=== PATIENT | male | born 1950 | race Caucasian/White ===

== ENCOUNTER 2017-02-17 18:46 | Emergency (ER) | payer MEDICARE, OTHER ==
[2017-02-17 18:52] VITALS: TEMP 98.4
--- NOTE | 2017-02-17 20:40 | EDPHY ---
H & P Stated Complaint: ? skin infections/fingers Time Seen by Provider: 02/17/17 20:28 - Personal History Current Tetanus/Diphtheria Vaccine: Yes - Medical/Surgical History Hx Asthma: No Hx Chronic Respiratory Disease: No Hx Diabetes: No Hx Cardiac Disease: No Hx Renal Disease: No Hx Cirrhosis: No Hx Alcoholism: No Hx HIV/AIDS: No Hx Splenectomy or Spleen Trauma: No Other PMH: denies - Social History Smoking Status: Current every day smoker Constitutional: Initial Vital Signs Temperature (C) 36.9 C 02/17/17 18:50 Heart Rate 105 H 02/17/17 18:50 Respiratory Rate 20 02/17/17 18:50 Blood Pressure 117/92 H 02/17/17 18:50 O2 Sat (%) 96 02/17/17 18:50 O2 Delivery Mode Room Air Allergies/Adverse Reactions: No Known Allergies Allergy (Verified 02/17/17 18:49) Home Medications: Medication Instructions Recorded No Medications [NO HOME 1 ea [facility] – [place], [place] 12/02/10 MEDICATIONS] Medical Decision Making ED Course/Re-evaluation: CHIEF COMPLAINT: Finger infection HISTORY OF PRESENT ILLNESS: 66-year-old gentleman who has a finger infection on the left long finger. It has been effective for several days. [facility] seen [facility] who recommended they come here to the emergency department to have it treated. 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 There is no other fingers that are bothering him outside of his usual arthritis. REVIEW OF SYSTEMS: A 10 point review of systems was performed and is negative with the exception of the elements mentioned in the history of present illness. PHYSICAL EXAM: HR, BP, O2 Sat, RR. Temp noted General Appearance: Alert, well hydrated, appropriate, and non-toxic appearing. Head: Atraumatic without scalp tenderness or obvious injury Eyes: Pupils equal, round, reactive to light and accommodation, EOMI, no trauma , no injection. Ears: Clear bilaterally, no perforation, normal landmarks Nose: Atraumatic, no rhinorrhea, clear. Throat: There is no erythema or exudates, no lesions, normal tonsils, mucus membranes moist. Neck: Supple, 2+ carotid upstroke, nontender, no lymphadenopathy. Respiratory: No retractions, no distress, no wheezes, and no accessory muscle use. Lungs are clear to auscultation bilaterally. Cardiovascular: Regular rate and rhythm, no murmurs, rubs, or gallops. Bilateral carotid, radial, dorsalis pedis, and posterior tibial pulses intact. Good capillary refill all extremities. Gastrointestinal: Abdomen is soft, nontender, non-distended, no masses, no rebound, no guarding, no peritoneal signs. Musculoskeletal: Normal active ROM of all extremities, atraumatic. Neurological: Alert, appropriate, and interactive. The patient has normal DTRs and non-focal cranial nerves, motor, sensory, and cerebellar exam. Skin: Obvious paronychia of the left long finger. No evidence of a felon. No rashes, good turgor, no nodules on palpation. Past medical history: Patient denies Past surgical history: Patient denies Family history: Noncontributory Social history: Single, uses cigarettes, denies drug or alcohol abuse, employed DIFFERENTIAL DIAGNOSIS: Includes but is not limited to: Trauma, infection, subungual hematoma, arthritis MEDICAL DECISION MAKING: This patient has a paronychia of the left long finger. Mary Ann Burt will Jace the paronychia and I will start this patient on Bactrim. [facility] - Departure Disposition: Home, Routine, Self-Care Clinical Impression: Paronychia Condition: Good Instructions: Paronychia (ED) Referrals: [facility] [Other] - As per Instructions
[2017-02-17] MEDS ORDERED: SULFAMET/TMP DS PREPACK#2 BTL TAKEHOME ONE (20:41)
[2017-02-17] MEDS ORDERED: SULFAMETHOX/TMP 800/160 MG 1 TAB PO ONE (20:41)
--- NOTE | 2017-02-17 20:50 | EDPHY ---
ED Progress Note Narrative: Procedure: Abscess drainage. The patient's abscess was located on the left index finger distal aspect. I obtained verbal consent from the patient to drain the abscess who was informed about the possibility of bleeding and pain. A digital block was performed with in usual fashion to achieve anesthesia. The abscess was incised using a stab incision with a 27 gauge needle at the proximal nail fold. 6 ML amount of purulent drainage was expressed. I irrigated the wound and apply clean sterile dressing. The patient tolerated the procedure well. The procedure was performed by myself.
[2017-02-17 21:04] VITALS: BP 116/90; PULSE 89; RESP 18; O2SAT 94
== END 2017-02-17 21:10 | disposition home or self-care (01) ==
PROC: 0H9GXZZ Drainage of Left Hand Skin, External Approach (ICD-10-PCS; principal; 2017-02-17)
DX: L03.012 Cellulitis of left finger (principal); F17.200 Nicotine dependence, unspecified, uncomplicated

== ENCOUNTER 2017-03-16 11:50 | Emergency (ER) | payer OTHER ==
[2017-03-16 12:42] LABS: PLATELET COUNT 302 10^3/uL (150-400)
[2017-03-16] MEDS ORDERED: HYDROmorphONE/DILAUDID 1 MG/ML INJ IVP ONE (13:01)
[2017-03-16] MEDS ORDERED: NS 1,000 ML IV ONE (13:01)
--- NOTE | 2017-03-16 13:07 | EDPHY ---
H & P Time Seen by Provider: 03/16/17 12:53 HPI/ROS: HPI Left hip and flank pain. 66-year-old male on foot. This patient says that he has had left hip and flank pain for the last month. His primary care physician prescribed him ibuprofen about 2 weeks ago. He took this but stated that he then started having gross hematuria. This has resolved but over the last few days his left flank pain which radiates down into his left hip has worsened. He reports having a history of a kidney stone he was told about years ago. No fever. Current no hematuria. No vomiting. No history of trauma. ROS: Constitutional: No fever, no chills. No weakness. Eyes: No discharge. No changes in vision. ENT: No sore throat. No nasal congestion or rhinorrhea. Respiratory: No cough. No shortness of breath. Cardiac: No chest pain, no palpitations. Gastrointestinal: No abdominal pain, no vomiting, no diarrhea. Genitourinary: As above. No dysuria or increased frequency with urination. Musculoskeletal: As above. No neck pain. No myalgias or arthralgias. Skin: No rashes. Neurological: No headache. No focal weakness or altered sensation. Past medical history: As above. Otherwise he denies any past medical history. Primary care is through [facility]. Social history: Here by himself. 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 Denies drugs and alcohol. Physical Exam: General Appearance: Alert, he does not appear in distress. Somewhat disheveled. This patient is responding to questions appropriately and in full sentences. This patient appears well-hydrated and well-nourished. Eyes: Pupils equal and round no pallor or injection. No lid edema, erythema or injection. Respiratory: There are no retractions, lungs are clear to auscultation with good air movement bilaterally. Cardiovascular: Regular rate and rhythm. No murmur. Gastrointestinal: Abdomen is soft and nontender, no masses, bowel sounds normal. No focal tenderness at McBurney's point. No Carvalho sign. Neurological: Motor sensory function is grossly intact. Cranial nerves are normal. Gait is normal. Skin: Warm and dry, no rashes. Musculoskeletal: Neck is supple and nontender. Vague and mild left-sided CVA tenderness on palpation. The left hip ranges without any pain or impingement. No pain on axial loading of the left hip. Inspection of his back and flanks, no rash, soft tissue swelling, erythema, warmth or evidence of acute traumatic injury. Extremities are symmetrical. All joints range without pain or impingement. Psychiatric: No agitation. No depression. Database: EKG: Imaging: CT scan of abdomen and pelvis without contrast: Large, 4 cm left renal calyx stone. Gallstones noted. No significant change from prior study in 2008. Results were discussed with staff radiologist Dr. Gnuner Nicolas. Please see report by Dr. Gunner Nicolas for further details. Procedures: Emergency department course: IV placed. He was placed on a environmental monitoring technician. Vital signs reviewed and are normal. He is afebrile. He was started on IV normal saline with 1 L to be given over the next hour. He was initially given 0.5 mg of IV hydromorphone. He will be sent for CT imaging to evaluate for ureterolithiasis. 3:05 p.m., laboratory work and urinalysis reviewed. Patient re-evaluated. He appears comfortable at this time. I discussed the results of his emergency department workup and CT scan. Plan will be to have him follow up with a urologist. I explained this could be done through his primary care physician at [facility] and I will also provide him with a referral directly. He is in agreement with this plan. He feels comfortable going home. Return to emergency department precautions were discussed with him. All of his questions were answered. He was discharged in good condition. Differential Diagnosis: The differential diagnosis on this patient includes but is not limited to kidney stone, osteoarthritis of left hip, traumatic musculoskeletal injury. Pyelonephritis, appendicitis, volvulus, fracture/subluxation/dislocation of the left hip unlikely. This represents a partial list of diagnoses considered. These considerations are based on history, physical exam, past history, reassessment and diagnostic testing. Smoking Status: Current every day smoker Constitutional: Initial Vital Signs Temperature (C) 36.4 C 03/16/17 11:54 Heart Rate 90 03/16/17 11:54 Respiratory Rate 18 03/16/17 11:54 Blood Pressure 117/87 H 03/16/17 11:54 O2 Sat (%) 96 03/16/17 11:54 O2 Delivery Mode Room Air Allergies/Adverse Reactions: No Known Allergies Allergy (Verified 03/16/17 11:53) Home Medications: Medication Instructions Recorded NK [No Known Home Meds] 03/16/17 Medical Decision Making - Diagnostics Imaging Results: Imaging Impressions Abdomen/Pelvis CT 03/16/17 13:02 Impression: 1. Cholelithiasis with possible gallbladder wall thickening, suspicious for cholecystitis, similar to the comparison from 2008, suboptimally assessed due to motion. 2. Slight increase in size of a 4-cm left renal pelvis stone with marked pelviectasis and mild caliectasis. 3. 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 4. Punctate nonobstructing right nephrolithiasis. 5. Additional findings as above. Findings discussed with Dr. Alfredo Clayton on March 16, 2017 at 1405 hours. Attention: This CT examination is specifically designed to evaluate patients who are clinically suspected of having acute obstructive uropathy. This examination does not use radiographic contrast, and as such, provides only a limited evaluation of the abdomen, pelvis and retroperitoneum. If there is further clinical suspicion for pathological conditions other than obstructive uropathy, a complete CT evaluation of the abdomen and pelvis utilizing intravenous and oral contrast should be considered. - Data Points Laboratory Results: Laboratory Results 03/16/17 12:20 03/16/17 12:20 03/16/17 03/16/17 03/16/17 14:30 12:20 12:20 WBC 6.85 10^3/uL 10^3/uL (3.80-9.50) RBC 4.60 10^6/uL 10^6/uL (4.40-6.38) Hgb 14.5 g/dL g/dL (13.7-17.5) Hct 42.0 % % (40.0-51.0) MCV 91.3 fL fL (81.5-99.8) MCH 31.5 pg pg (27.9-34.1) MCHC 34.5 g/dL g/dL (32.4-36.7) RDW 15.0 % % (11.5-15.2) Plt Count 302 10^3/uL 10^3/uL (150-400) MPV 9.3 fL fL (8.7-11.7) Neut % (Auto) 44.4 % % (39.3-74.2) Lymph % (Auto) 28.9 % % (15.0-45.0) [place] % (Auto) 9.8 % % (4.5-13.0) Eos % (Auto) 14.7 % H % (0.6-7.6) Baso % (Auto) 1.8 % H % (0.3-1.7) Nucleat RBC Rel Count 0.0 % % (0.0-0.2) Absolute Neuts (auto) 3.04 10^3/uL 10^3/uL (1.70-6.50) Absolute Lymphs (auto) 1.98 10^3/uL 10^3/uL (1.00-3.00) Absolute Monos (auto) 0.67 10^3/uL 10^3/uL (0.30-0.80) Absolute Eos (auto) 1.01 10^3/uL H 10^3/uL (0.03-0.40) Absolute Basos (auto) 0.12 10^3/uL H 10^3/uL (0.02-0.10) Absolute Nucleated RBC 0.00 10^3/uL 10^3/uL (0-0.01) Immature Gran % 0.4 % % (0.0-1.1) Immature Gran # 0.03 10^3/uL 10^3/uL (0.00-0.10) Sodium 140 mEq/L mEq/L (134-144) Potassium 4.0 mEq/L mEq/L (3.5-5.2) Chloride 105 mEq/L mEq/L (97-110) Carbon Dioxide 25 mEq/l mEq/l (22-31) Anion Gap 10 mEq/L mEq/L (8-16) BUN 16 mg/dL mg/dL (7-23) Creatinine 0.6 mg/dL L mg/dL (0.7-1.3) Estimated GFR > 60 Glucose 98 mg/dL mg/dL (70-100) Calcium 8.9 mg/dL mg/dL (8.5-10.4) Urine Color YELLOW Urine Appearance HAZY Urine pH 5.0 (5.0-7.5) Ur Specific [place] 1.012 (1.002-1.030) Urine Protein NEGATIVE (NEGATIVE) Urine Ketones NEGATIVE (NEGATIVE) Urine Blood 2+ H (NEGATIVE) Urine Nitrate NEGATIVE (NEGATIVE) Urine Bilirubin NEGATIVE (NEGATIVE) Urine Urobilinogen NEGATIVE EU EU (0.2-1.0) Ur Leukocyte Esterase NEGATIVE (NEGATIVE) Urine RBC 3-5 /hpf H /hpf (0-3) Urine WBC 1-3 /hpf /hpf (0-3) Ur Epithelial Cells TRACE /lpf /lpf (NONE-1+) Calcium Oxalate Crystal PRESENT /hpf /hpf (NONE-1+) Urine Glucose NEGATIVE (NEGATIVE) Medications Given: Discontinued Medications Hydromorphone HCl (Dilaudid) 0.5 mg IVP EDNOW ONE Stop: 03/16/17 13:02 Last Admin: 03/16/17 13:10 Dose: 0.5 mg Sodium Chloride (Ns) 1,000 mls @ 0 mls/hr IV EDNOW ONE; Wide Open PRN Reason: Protocol Stop: 03/16/17 13:02 Last Admin: 03/16/17 13:11 Dose: 1,000 mls Departure - Departure Disposition: Home, Routine, Self-Care Clinical Impression: Left flank pain, Kidney stone on left side Condition: Good Instructions: Kidney Stones (ED), Flank Pain (ED) Additional Instructions: Read and follow provided instructions. Follow-up with your primary care physician at [facility] in 1-2 days for re -evaluation. You can be referred to a urologist by primary care physician at [facility]. I will also provide you with a referral to a urologist. This stone in your left kidneys to be broken up and removed. [place]/Percocet dosin-2 every 4-6 hours for [address] not drive on this medication. Return to the emergency department for worsening pain, fever, blood in her urine , vomiting or other serious concerns. Referrals: [facility] [Other] - As per Instructions Adama Brink MD [Medical Doctor] - As per Instructions
--- NOTE | 2017-03-16 13:07 | EDPHY ---
H & P Time Seen by Provider: 03/16/17 12:53 HPI/ROS: HPI Left hip and flank pain. 66-year-old male on foot. This patient says that he has had left hip and flank pain for the last month. His primary care physician prescribed him ibuprofen about 2 weeks ago. He took this but stated that he then started having gross hematuria. This has resolved but over the last few days his left flank pain which radiates down into his left hip has worsened. He reports having a history of a kidney stone he was told about years ago. No fever. Current no hematuria. No vomiting. No history of trauma. ROS: Constitutional: No fever, no chills. No weakness. Eyes: No discharge. No changes in vision. ENT: No sore throat. No nasal congestion or rhinorrhea. Respiratory: No cough. No shortness of breath. Cardiac: No chest pain, no palpitations. Gastrointestinal: No abdominal pain, no vomiting, no diarrhea. Genitourinary: As above. No dysuria or increased frequency with urination. Musculoskeletal: As above. No neck pain. No myalgias or arthralgias. Skin: No rashes. Neurological: No headache. No focal weakness or altered sensation. Past medical history: As above. Otherwise he denies any past medical history. Primary care is through [facility]. Social history: Here by himself. 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 Denies drugs and alcohol. Physical Exam: General Appearance: Alert, he does not appear in distress. Somewhat disheveled. This patient is responding to questions appropriately and in full sentences. This patient appears well-hydrated and well-nourished. Eyes: Pupils equal and round no pallor or injection. No lid edema, erythema or injection. Respiratory: There are no retractions, lungs are clear to auscultation with good air movement bilaterally. Cardiovascular: Regular rate and rhythm. No murmur. Gastrointestinal: Abdomen is soft and nontender, no masses, bowel sounds normal. No focal tenderness at McBurney's point. No Carvalho sign. Neurological: Motor sensory function is grossly intact. Cranial nerves are normal. Gait is normal. Skin: Warm and dry, no rashes. Musculoskeletal: Neck is supple and nontender. Vague and mild left-sided CVA tenderness on palpation. The left hip ranges without any pain or impingement. No pain on axial loading of the left hip. Inspection of his back and flanks, no rash, soft tissue swelling, erythema, warmth or evidence of acute traumatic injury. Extremities are symmetrical. All joints range without pain or impingement. Psychiatric: No agitation. No depression. Database: EKG: Imaging: CT scan of abdomen and pelvis without contrast: Large, 4 cm left renal calyx stone. Gallstones noted. No significant change from prior study in 2008. Results were discussed with staff radiologist Dr. Gunner Nicolas. Please see report by Dr. Gunner Nicolas for further details. Procedures: Emergency department course: IV placed. He was placed on a secured entrance monitor. Vital signs reviewed and are normal. He is afebrile. He was started on IV normal saline with 1 L to be given over the next hour. He was initially given 0.5 mg of IV hydromorphone. He will be sent for CT imaging to evaluate for ureterolithiasis. 3:05 p.m., laboratory work and urinalysis reviewed. Patient re-evaluated. He appears comfortable at this time. I discussed the results of his emergency department workup and CT scan. Plan will be to have him follow up with a urologist. I explained this could be done through his primary care physician at [facility] and I will also provide him with a referral directly. He is in agreement with this plan. He feels comfortable going home. Return to emergency department precautions were discussed with him. All of his questions were answered. He was discharged in good condition. Differential Diagnosis: The differential diagnosis on this patient includes but is not limited to kidney stone, osteoarthritis of left hip, traumatic musculoskeletal injury. Pyelonephritis, appendicitis, volvulus, fracture/subluxation/dislocation of the left hip unlikely. This represents a partial list of diagnoses considered. These considerations are based on history, physical exam, past history, reassessment and diagnostic testing. Smoking Status: Current every day smoker Constitutional: Initial Vital Signs Temperature (C) 36.4 C 03/16/17 11:54 Heart Rate 90 03/16/17 11:54 Respiratory Rate 18 03/16/17 11:54 Blood Pressure 117/87 H 03/16/17 11:54 O2 Sat (%) 96 03/16/17 11:54 O2 Delivery Mode Room Air Allergies/Adverse Reactions: No Known Allergies Allergy (Verified 03/16/17 11:53) Home Medications: Medication Instructions Recorded NK [No Known Home Meds] 03/16/17 Medical Decision Making - Diagnostics Imaging Results: Imaging Impressions Abdomen/Pelvis CT 03/16/17 13:02 Impression: 1. Cholelithiasis with possible gallbladder wall thickening, suspicious for cholecystitis, similar to the comparison from 2008, suboptimally assessed due to motion. 2. Slight increase in size of a 4-cm left renal pelvis stone with marked pelviectasis and mild caliectasis. 3. 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 4. Punctate nonobstructing right nephrolithiasis. 5. Additional findings as above. Findings discussed with Dr. Alfredo Clayton on March 16, 2017 at 1405 hours. Attention: This CT examination is specifically designed to evaluate patients who are clinically suspected of having acute obstructive uropathy. This examination does not use radiographic contrast, and as such, provides only a limited evaluation of the abdomen, pelvis and retroperitoneum. If there is further clinical suspicion for pathological conditions other than obstructive uropathy, a complete CT evaluation of the abdomen and pelvis utilizing intravenous and oral contrast should be considered. - Data Points Laboratory Results: Laboratory Results 03/16/17 12:20 03/16/17 12:20 03/16/17 03/16/17 03/16/17 14:30 12:20 12:20 WBC 6.85 10^3/uL 10^3/uL (3.80-9.50) RBC 4.60 10^6/uL 10^6/uL (4.40-6.38) Hgb 14.5 g/dL g/dL (13.7-17.5) Hct 42.0 % % (40.0-51.0) MCV 91.3 fL fL (81.5-99.8) MCH 31.5 pg pg (27.9-34.1) MCHC 34.5 g/dL g/dL (32.4-36.7) RDW 15.0 % % (11.5-15.2) Plt Count 302 10^3/uL 10^3/uL (150-400) MPV 9.3 fL fL (8.7-11.7) Neut % (Auto) 44.4 % % (39.3-74.2) Lymph % (Auto) 28.9 % % (15.0-45.0) [place] % (Auto) 9.8 % % (4.5-13.0) Eos % (Auto) 14.7 % H % (0.6-7.6) Baso % (Auto) 1.8 % H % (0.3-1.7) Nucleat RBC Rel Count 0.0 % % (0.0-0.2) Absolute Neuts (auto) 3.04 10^3/uL 10^3/uL (1.70-6.50) Absolute Lymphs (auto) 1.98 10^3/uL 10^3/uL (1.00-3.00) Absolute Monos (auto) 0.67 10^3/uL 10^3/uL (0.30-0.80) Absolute Eos (auto) 1.01 10^3/uL H 10^3/uL (0.03-0.40) Absolute Basos (auto) 0.12 10^3/uL H 10^3/uL (0.02-0.10) Absolute Nucleated RBC 0.00 10^3/uL 10^3/uL (0-0.01) Immature Gran % 0.4 % % (0.0-1.1) Immature Gran # 0.03 10^3/uL 10^3/uL (0.00-0.10) Sodium 140 mEq/L mEq/L (134-144) Potassium 4.0 mEq/L mEq/L (3.5-5.2) Chloride 105 mEq/L mEq/L (97-110) Carbon Dioxide 25 mEq/l mEq/l (22-31) Anion Gap 10 mEq/L mEq/L (8-16) BUN 16 mg/dL mg/dL (7-23) Creatinine 0.6 mg/dL L mg/dL (0.7-1.3) Estimated GFR > 60 Glucose 98 mg/dL mg/dL (70-100) Calcium 8.9 mg/dL mg/dL (8.5-10.4) Urine Color YELLOW Urine Appearance HAZY Urine pH 5.0 (5.0-7.5) Ur Specific [place] 1.012 (1.002-1.030) Urine Protein NEGATIVE (NEGATIVE) Urine Ketones NEGATIVE (NEGATIVE) Urine Blood 2+ H (NEGATIVE) Urine Nitrate NEGATIVE (NEGATIVE) Urine Bilirubin NEGATIVE (NEGATIVE) Urine Urobilinogen NEGATIVE EU EU (0.2-1.0) Ur Leukocyte Esterase NEGATIVE (NEGATIVE) Urine RBC 3-5 /hpf H /hpf (0-3) Urine WBC 1-3 /hpf /hpf (0-3) Ur Epithelial Cells TRACE /lpf /lpf (NONE-1+) Calcium Oxalate Crystal PRESENT /hpf /hpf (NONE-1+) Urine Glucose NEGATIVE (NEGATIVE) Medications Given: Discontinued Medications Hydromorphone HCl (Dilaudid) 0.5 mg IVP EDNOW ONE Stop: 03/16/17 13:02 Last Admin: 03/16/17 13:10 Dose: 0.5 mg Sodium Chloride (Ns) 1,000 mls @ 0 mls/hr IV EDNOW ONE; Wide Open PRN Reason: Protocol Stop: 03/16/17 13:02 Last Admin: 03/16/17 13:11 Dose: 1,000 mls Departure - Departure Disposition: Home, Routine, Self-Care Clinical Impression: Left flank pain, Kidney stone on left side Condition: Good Instructions: Kidney Stones (ED), Flank Pain (ED) Additional Instructions: Read and follow provided instructions. Follow-up with your primary care physician at [facility] in 1-2 days for re -evaluation. You can be referred to a urologist by primary care physician at [facility]. I will also provide you with a referral to a urologist. This stone in your left kidneys to be broken up and removed. [place]/Percocet dosin-2 every 4-6 hours for [address] not drive on this medication. Return to the emergency department for worsening pain, fever, blood in her urine , vomiting or other serious concerns. Referrals: [facility] [Other] - As per Instructions Adama Brink MD [Medical Doctor] - As per Instructions
[2017-03-16 13:45] VITALS: RESP 16
[2017-03-16] MEDS ORDERED: HYDROCOD/APAP 5/325 PREPACK#6 BTL TAKEHOME ONE (15:16)
[2017-03-16 15:36] VITALS: BP 143/86; PULSE 80; TEMP 97.7; O2SAT 98
== END 2017-03-16 15:34 | disposition home or self-care (01) ==
DX: N20.0 Calculus of kidney (principal); E86.9 Volume depletion, unspecified; F17.200 Nicotine dependence, unspecified, uncomplicated
CPT/HCPCS: 74176; 96361; 96374; 99285; J1170

== ENCOUNTER → 2017-03-18 | Outpatient (CLI) | payer OTHER | LOC: FIMAGING 12:29 | PROVIDERS: ATTEND Specialist | DX: N20.0 Calculus of kidney (principal) ==

== ENCOUNTER 2017-11-05 17:06 | Emergency (ER) | payer MEDICAID ==
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
[2017-11-05] MEDS ORDERED: VANCOMYCIN HCL/NORMAL SALINE 250 ML IV ONE (17:45)
[2017-11-05 17:50] VITALS: BP 132/94
[2017-11-05] MEDS ORDERED: CEPHALEXIN 500 MG CAP PO ONE (18:12)
[2017-11-05] MEDS ORDERED: SULFAMETHOX/TMP 800/160 MG 1 TAB PO ONE (18:12)
== END 2017-11-05 18:28 | disposition left against medical advice (07) ==
DX: L03.114 Cellulitis of left upper limb (principal); F17.200 Nicotine dependence, unspecified, uncomplicated

== ENCOUNTER 2017-11-06 14:46 | Inpatient (IN) | payer MEDICAID ==
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
[2017-11-06] MEDS ORDERED: VANCOMYCIN HCL/NORMAL SALINE 250 ML IV ONE (15:10)
[2017-11-06] MEDS ORDERED: ONDANSETRON 4 MG/2 ML VIAL IVP PRN (15:26)
[2017-11-06] MEDS ORDERED: ACETAMINOPHEN 325 MG TAB PO PRN (15:26)
[2017-11-06] MEDS ORDERED: ONDANSETRON DISINTEGRATING 4 MG TAB PO PRN (15:26)
[2017-11-06 16:05] LABS: PLATELET COUNT 459 10^3/uL (150-400)
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
[2017-11-06] MEDS: NICOTINE 21 MG/24 HR PATCH TD SCH (17:17)
--- NOTE | 2017-11-06 20:28 | SOAPPROG ---
SOAP Progress Note Assessment/Plan: Assessment: 67 male with infected left olecranon bursa with cellulitis will need abx and i&d and debridement Plan:I&D in am/ risks and options fully discussed 11/06/17 20:26 Objective: Vital Signs Temp Pulse Resp BP Pulse Ox 36.8 C 75 16 121/85 H 93 11/06/17 17:04 11/06/17 17:04 11/06/17 17:04 11/06/17 17:04 11/06/17 17:04 Laboratory Results 11/06/17 15:47 11/06/17 15:47 11/05/17 11/06/17 11/07/17 05:59 05:59 05:59 Intake Total 400 Balance 400 ICD10 Worksheet Patient Problems: Problems Problem Status Onset Cellulitis of left elbow Acute
[2017-11-07] MEDS: NICOTINE 21 MG/24 HR PATCH TD SCH (08:35)
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
--- NOTE | 2017-11-07 10:50 | ASMTCMCOM ---
CM Note CM Note Notes: Pt has elbow abscess, on IV Ancef currently. Pt to have I & D and debridement today. CM to follow for d/c planning. Date Signed: 11/07/2017 10:50 AM Electronically Signed By:MASOUD Anders
--- NOTE | 2017-11-07 13:54 | HOSPPROG ---
Hospitalist Progress Note Assessment/Plan: * Left elbow cellulitis with olecranon bursitis -to OR with Dr. Villalobos today for I&D -culture with GAS - continue IV ancef * Tobacco dependence -nicotine patch Subjective: Elbow is better Objective: Vital Signs Temp Pulse Resp BP Pulse Ox 36.7 C 79 16 124/91 H 97 11/07/17 03:45 11/07/17 03:45 11/07/17 03:45 11/07/17 03:45 11/07/17 03:45 Laboratory Results 11/06/17 15:47 11/06/17 15:47 11/06/17 11/07/17 11/08/17 05:59 05:59 05:59 Intake Total 1000 Balance 1000 - Physical Exam Constitutional: no apparent distress, appears nourished, not in pain Cardiovascular: regular rate and rhythym, no murmur, rub, or gallop Respiratory: no respiratory distress, no rales or rhonchi, clear to auscultation Gastrointestinal: normoactive bowel sounds, soft, non-tender abdomen, no palpable masses Skin: no rashes or abrasions, no fluctuance, no induration, erythema Neurologic: AAOx3, sensation intact bilaterally Psychiatric: agitated, poor insight, No interacting appropriately (angry), No encephalopathic ICD10 Worksheet Patient Problems: Problems Problem Status Onset Cellulitis of left elbow Acute
[2017-11-07] MEDS ORDERED: LIDOCAINE 1% 300 MG/30 ML SDV IF ONE (15:45)
[2017-11-08 07:54] VITALS: BP 132/88
[2017-11-08] MEDS: NICOTINE 21 MG/24 HR PATCH TD SCH (09:25)
--- NOTE | 2017-11-08 11:39 | SOAPPROG ---
SOAP Progress Note Assessment/Plan: Assessment: 67 male with infected left olecranon bursa with cellulitis will need abx and i&d and debridement Plan:I&D in am/ risks and options fully discussed 11/06/17 20:26 11/08/17 11:38 CELLULITIS RESOLVING/AFEBRILE/WANTS TO GO HOME/CULTURE GROWING STREP PYOGENES PROBABLY HOME ON KEFLEX ARE PENICILLIN/FOLLOW-UP OUTPATIENT Objective: Vital Signs Temp Pulse Resp BP Pulse Ox 37.1 C 72 15 132/88 H 97 11/08/17 07:54 11/08/17 07:54 11/08/17 07:54 11/08/17 07:54 11/08/17 07:54 Microbiology 11/07/17 17:06 Gram Stain - Final Elbow - Anaerobic Tube/Swab Laboratory Results 11/06/17 15:47 11/06/17 15:47 11/07/17 11/08/17 11/09/17 05:59 05:59 05:59 Intake Total 1000 600 Output Total 550 Balance 1000 50 ICD10 Worksheet Patient Problems: Problems Problem Status Onset Cellulitis of left elbow Acute
--- NOTE | 2017-11-08 12:10 | ASMTCMCOM ---
CM Note CM Note Notes: Chart reviewed. Patient anxious to discharge. He lives alone with his dog. He just wants to go home. He is aware he needs wound care but refusing [facility] for wound care. He will f/u with [facility] for wound care. He states he has money to purchase his medications. He is also aware he needs to follow up with Dr. Villalobos. CM availabe should other needs arise. Plan: Dc to home self care. Date Signed: 11/08/2017 12:09 PM Electronically Signed By:Caity Ny RN
--- NOTE | 2017-11-08 12:26 | ASMTLACE ---
[facility] Length of stay for Answers: 1 day current admission Acuity / Level of Answers: Yes Care: Did the patient have an inpatient admission? Comorbidities - select Answers: Other Notes: cellullitis all that apply # of Emergency department Answers: 1-2 visits in the last 6 months Social determinants Answers: Lack of community resources and/or lack of social support (no pcp, lives alone, transportation, stephie d) Score: 10 Date Signed: 11/08/2017 12:25 PM Electronically Signed By:Caity Ny RN
--- NOTE | 2017-11-08 13:46 | GDS ---
[f rep st] DISCHARGE SUMMARY DISCHARGE DIAGNOSES: 1. Left olecranon bursitis with elbow cellulitis. 2. Tobacco dependency. 3. Pain. CONSULTATIONS: Dr. Villalobos. PHYSICAL EXAMINATION: GENERAL: The patient is alert. VITAL SIGNS: Afebrile at 37.1, pulse 72, res piratory rate 15, blood pressure is 132/88. He is saturating 97% on room air. I have seen and evalu ated the patient on the day of discharge. HOSPITAL COURSE: The patient is a 67-year-old male who presented to the emergency room with complain ts of elbow pain. He was evaluated and diagnosed with left elbow cellulitis with olecranon bursitis. During this hospitalization, he was taken to the operating room by Dr. Villalobos. I and D and washout we re performed. The patient has a packing in place. I have discussed disposition with Dr. Villalobos who i s amenable to the patient being discharged. He will continue on oral Augmentin as well as doxycyclin e for potential MRSA coverage and strep that was noted. The patient is refusing home care at this ti me. Will follow up at [facility] for his dressing changes and also follow up with Dr. Villalobos for further evaluation and management. PENDING STUDIES,: Include wound culture. DISCHARGE MEDICATIONS: Please refer to EMR form. I have provided the patient a prescription for dox ycycline, as well as Augmentin. DISCHARGE INSTRUCTIONS/FOLLOWUP: Will also have wound care at [facility]. Followup with Dr. Susan guerrero, as well as [facility]. I spent greater than 35 minutes in the care, coordination, and management of the patient's dispositio n. /[id number]/MODL
--- NOTE | 2017-12-12 20:21 | GOP ---
[f rep st] OPERATIVE REPORT DATE OF OPERATION: 11/07/2017 SURGEON: Tano Villalobos MD PREOPERATIVE DIAGNOSIS: Infected left olecranon bursa. POSTOPERATIVE DIAGNOSIS: Infected left olecranon bursa. PROCEDURE PERFORMED: Incision and drainage of the olecranon bursal abscess. FINDINGS: A 3 cm area of draining abscess from the olecranon bursa on the left DESCRIPTION OF PROCEDURE: The area was infiltrated with 0.5% Marcaine. A longitudinal incision was made over the abscess pocket and it was then irrigated and drained and packed with some iodoform gauze. He tolerated the procedure well. There were no complications. /[id number]/MODL MTDD
== END 2017-11-08 12:46 | disposition home or self-care (01) | DRG 351 ==
LOC: F3N 16:35
PROVIDERS: ADMIT Internal Medicine; ATTEND Internal Medicine
PROC: 0M940ZX Drainage of Left Elbow Bursa and Ligament, Open Approach, Diagnostic (ICD-10-PCS; principal; 2017-11-06)
PROC: 3E03329 Introduction of Other Anti-infective into Peripheral Vein, Percutaneous Approach (ICD-10-PCS; 2017-11-06)
DX: M70.22 Olecranon bursitis, left elbow (principal); L03.114 Cellulitis of left upper limb; B95.0 Streptococcus, group A, as the cause of diseases classified elsewhere; D47.3 Essential (hemorrhagic) thrombocythemia; F17.210 Nicotine dependence, cigarettes, uncomplicated; Z86.14 Personal history of Methicillin resistant Staphylococcus aureus infection
CPT/HCPCS: J0690; J3370

== ENCOUNTER 2017-11-18 10:24 | Emergency (ER) | payer MEDICAID ==
[2017-11-18 10:31] VITALS: BP 110/77
--- NOTE | 2017-11-18 11:28 | ASMTCAGE ---
CAGE Additional Comments Patient denies regular drug/alcohol use. "smokes pot on occassion" Date Signed: 11/18/2017 11:28 AM Electronically Signed By:Lydia Jackson RN
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
== END 2017-11-18 12:17 | disposition home or self-care (01) ==
DX: S22.31XA Fracture of one rib, right side, initial encounter for closed fracture (principal); S43.101A Unspecified dislocation of right acromioclavicular joint, initial encounter; F17.200 Nicotine dependence, unspecified, uncomplicated; V18.4XXA Pedal cycle driver injured in noncollision transport accident in traffic accident, initial encounter; Y92.410 Unspecified street and highway as the place of occurrence of the external cause; Y99.8 Other external cause status; Y93.55 Activity, bike riding

== ENCOUNTER 2018-08-20 17:17 | Inpatient (IN) | payer MEDICAID, OTHER ==
[2018-08-20] MEDS ORDERED: NS 1,000 ML IV ONE (17:45)
[2018-08-20] MEDS ORDERED: fentaNYL 100 MCG/2 ML INJ IVP ONE (17:46)
[2018-08-20] MEDS ORDERED: IOPAMIDOL (ISOVUE 370) 100 ML BTL IV ONE (17:56)
[2018-08-20 18:13] LABS: PLATELET COUNT 245 10^3/uL (150-400)
--- NOTE | 2018-08-20 18:44 | EDPHY ---
H & P Stated Complaint: abd pain Time Seen by Provider: 08/20/18 17:35 HPI/ROS: CHIEF COMPLAINT: Abdominal pain HISTORY OF PRESENT ILLNESS: 67-year-old male presents emergency department reporting that he has had vague abdominal pain for the last 3 weeks. Pain worsened over last 2-3 days. Unable to fully describe the discomfort stating that he has "bad" abdominal pain which seemed to start in the left lower quadrant and now is across the lower abdomen. No diarrhea. No vomiting. No urinary complaints. No abdominal surgeries. No prior history of discomfort similar to this. No fevers or chills. REVIEW OF SYSTEMS: A comprehensive 10 system review of systems was reviewed and is otherwise negative aside from elements mentioned in the history of present illness and medical decision making. PAST MEDICAL HISTORY: Patient denies. SOCIAL HISTORY: Smoker, daily alcohol use, denies marijuana or illicit drugs. VITAL SIGNS Reviewed by me. GENERAL: Disheveled gentleman, reporting abdominal discomfort. No respiratory distress. HEENT: Atraumatic. Eyes: Questionable icterus, no injection. Mouth: Very poor dentition, moist mucous membranes. No erythema or lesions. Neck: supple with no adenopathy. LUNGS: Clear to auscultation bilaterally, no wheezes, rhonchi or rales. CARDIAC: Regular rate and rhythm, no rubs, murmurs or gallops. ABDOMEN: Soft, firm to palpation, no tenderness elicited, no distension, no guarding or rebound. BACK: No CVA tenderness. EXTREMITIES: No trauma. No edema. Range of motion is normal throughout. NEURO: Alert and oriented, grossly nonfocal. SKIN: Warm and dry, no rash. PSYCHIATRIC: Normal mentation, no agitation. - Personal History Current Tetanus/Diphtheria Vaccine: Yes - Medical/Surgical History Hx Asthma: No Hx Chronic Respiratory Disease: No Hx Diabetes: No Hx Cardiac Disease: No Hx Renal Disease: No Hx Cirrhosis: No Hx Alcoholism: No Hx HIV/AIDS: No Hx Splenectomy or Spleen Trauma: No Other PMH: denies - Social History Smoking Status: Heavy smoker Constitutional: Initial Vital Signs Temperature (C) 37.2 C 08/20/18 17:20 Heart Rate 66 08/20/18 17:20 Respiratory Rate 18 08/20/18 17:20 Blood Pressure 173/105 H 08/20/18 17:20 O2 Sat (%) 94 08/20/18 17:20 O2 Delivery Mode Room Air Allergies/Adverse Reactions: No Known Allergies Allergy (Verified 08/20/18 17:23) Home Medications: Medication Instructions Recorded Acetaminophen [Tylenol 325mg (*)] 650 mg PO Q4HRS PRN tab 11/08/17 Amoxicillin/Clavulanate Pot 875 mg PO BID #14 tab 11/27/17 [Augmentin 875 MG TAB (*)] Ferrous Sulfate [Slow Fe 140 MG] 140 mg PO BID #60 tab.er 11/27/17 Polyethylene Glycol 3350 [Miralax 17 gm PO DAILY #1 btl 11/27/17 17 gm (*)] traMADol [Ultram 50 mg (*)] 50 mg PO Q6HRS PRN #20 tab 11/27/17 Medical Decision Making - Diagnostics Imaging Results: Imaging Impressions Abdomen CT 08/20/18 17:45 Impression: 1. Large kidney stones identified within dilated left renal pelvis with thickened wall and possible chronic inflammatory/infectious process with underlying UPJ obstruction suspected. 2. Cholelithiasis with gallbladder wall thickening and pericholecystic fluid suggestive of chronic cholecystitis also identified previously. 3. Additional stable 3 mm nonobstructive calculus lower pole left kidney. 4. Focal thinning of the cortex of left kidney probably from scarring. Findings discussed with Rufina Rice MD at 19:13 hour, 08/20/2018. ED Course/Re-evaluation: IV was placed and patient received a L normal saline. He received Zofran for nausea and vomiting. Laboratory evaluation including LFTs and lipase were largely unremarkable. CT scan: Large 4 x 4 cm laminated calculi at the left UPJ with moderate hydronephrosis behind. Patient also has a large gallstone with signs of chronic cholecystitis. Course was discussed with Dr. Nighat Marie. Course was also discussed with audra Bill on-call for Dr. Cuevas. Patient was admitted to the hospitalist service. Patient's urine is positive for nitrates, 15-25 white cells, leukocyte esterase. This was sent for culture. Patient received 1 gram ceftriaxone. Right upper quadrant ultrasound also ordered. Differential Diagnosis: After obtaining the patient's history and performing an examination, differential diagnosis considered included but was not limited to appendicitis, cholecystitis, gastritis, pancreatitis, kidney stones, urinary tract infections and other causes. Consult/Admit Bed Type: Dr. Frank Sampson - Data Points Laboratory Results: Laboratory Results 08/20/18 17:57 08/20/18 17:57 08/20/18 08/20/18 08/20/18 20:15 17:57 17:57 WBC 10.91 10^3/uL H 10^3/uL (3.80-9.50) RBC 4.81 10^6/uL 10^6/uL (4.40-6.38) Hgb 13.6 g/dL L g/dL (13.7-17.5) Hct 43.0 % % (40.0-51.0) MCV 89.4 fL fL (81.5-99.8) MCH 28.3 pg pg (27.9-34.1) MCHC 31.6 g/dL L g/dL (32.4-36.7) RDW 16.5 % H % (11.5-15.2) Plt Count 245 10^3/uL 10^3/uL (150-400) MPV 9.5 fL fL (8.7-11.7) Neut % (Auto) 71.5 % % (39.3-74.2) Lymph % (Auto) 16.8 % % (15.0-45.0) Granite % (Auto) 8.2 % % (4.5-13.0) Eos % (Auto) 2.4 % % (0.6-7.6) Baso % (Auto) 0.8 % % (0.3-1.7) Nucleat RBC Rel Count 0.0 % % (0.0-0.2) Absolute Neuts (auto) 7.80 10^3/uL H 10^3/uL (1.70-6.50) Absolute Lymphs (auto) 1.83 10^3/uL 10^3/uL (1.00-3.00) Absolute Monos (auto) 0.90 10^3/uL H 10^3/uL (0.30-0.80) Absolute Eos (auto) 0.26 10^3/uL 10^3/uL (0.03-0.40) Absolute Basos (auto) 0.09 10^3/uL 10^3/uL (0.02-0.10) Absolute Nucleated RBC 0.00 10^3/uL 10^3/uL (0-0.01) Immature Gran % 0.3 % % (0.0-1.1) Immature Gran # 0.03 10^3/uL 10^3/uL (0.00-0.10) Sodium 135 mEq/L mEq/L (135-145) Potassium 4.0 mEq/L mEq/L (3.5-5.2) Chloride 103 mEq/L mEq/L (97-110) Carbon Dioxide 23 mEq/l mEq/l (22-31) Anion Gap 9 mEq/L mEq/L (6-14) BUN 22 mg/dL mg/dL (7-23) Creatinine 0.6 mg/dL L mg/dL (0.7-1.3) Estimated GFR > 60 Glucose 95 mg/dL mg/dL (70-100) Calcium 8.9 mg/dL mg/dL (8.5-10.4) Total Bilirubin 0.3 mg/dL mg/dL (0.1-1.4) Conjugated Bilirubin 0.3 mg/dL mg/dL (0.0-0.5) Unconjugated Bilirubin 0.0 mg/dL mg/dL (0.0-1.1) AST 23 IU/L IU/L (17-59) ALT 39 IU/L IU/L (21-72) Alkaline Phosphatase 85 IU/L IU/L (38-126) Total Protein 7.5 g/dL g/dL (6.3-8.2) Albumin 3.8 g/dL g/dL (3.5-5.0) Lipase 68 IU/L IU/L (23-300) Urine Color YELLOW Urine Appearance HAZY Urine pH 7.0 (5.0-7.5) Ur Specific [place] 1.035 H (1.002-1.030) Urine Protein NEGATIVE (NEGATIVE) Urine Ketones NEGATIVE (NEGATIVE) Urine Blood NEGATIVE (NEGATIVE) Urine Nitrate POSITIVE H (NEGATIVE) Urine Bilirubin NEGATIVE (NEGATIVE) Urine Urobilinogen NEGATIVE EU EU (0.2-1.0) Ur Leukocyte Esterase TRACE H (NEGATIVE) Urine RBC 5-10 /hpf H /hpf (0-3) Urine WBC 15-25 /hpf H /hpf (0-3) Ur Epithelial Cells 1+ /lpf /lpf (NONE-1+) Urine Mucus TRACE /lpf /lpf (NONE-1+) Urine Glucose NEGATIVE (NEGATIVE) Medications Given: Discontinued Medications Fentanyl (Sublimaze) 50 mcg IVP EDNOW ONE Stop: 08/20/18 17:47 Last Admin: 08/20/18 17:55 Dose: 50 mcg Sodium Chloride (Ns) 1,000 mls @ 0 mls/hr IV EDNOW ONE; Wide Open PRN Reason: Protocol Stop: 08/20/18 17:46 Last Admin: 08/20/18 17:54 Dose: 1,000 mls Departure - Departure Condition: Fair
[2018-08-20] MEDS ORDERED: diphenhydrAMINE 25 MG CAP PO PRN (22:46)
[2018-08-20] MEDS ORDERED: LORazepam 0.5 MG TAB PO PRN (22:46)
[2018-08-20] MEDS ORDERED: ONDANSETRON 4 MG/2 ML VIAL IVP PRN (22:46)
[2018-08-20] MEDS ORDERED: ONDANSETRON DISINTEGRATING 4 MG TAB PO PRN (22:46)
[2018-08-20] MEDS ORDERED: ACETAMINOPHEN 325 MG TAB PO PRN (22:46)
[2018-08-20] MEDS ORDERED: HYDROCODONE/APAP 5/325 TAB PO PRN (22:46)
[2018-08-20] MEDS ORDERED: HYDROmorphONE/DILAUDID 1 MG/ML INJ IVP PRN (22:46)
[2018-08-20] MEDS ORDERED: NS 1,000 ML IV SCH (23:00)
--- NOTE | 2018-08-20 23:26 | PDGENHP ---
History and Physical - Chief Complaint left lateral abdominal pain - History of Present Illness Source - Patient provides history appears reliable. EMR reviewed and case discussed with accepting hospitalist. HPI - 67-year-old gentleman with past has tree significant for large left kidney stone, tobacco dependence who presents emergency department today with complaints of left lateral and lower abdominal pain. Patient reports that it has been greater than 4 years since he was diagnosed with a kidney stone. A urologist at that time recommended id surgical intervention which patient declined at that time. He has since had intermittent colicky type pain intermittently every few weeks. Patient reports that is currently constant aching but not sharp. It is of variable severity. He denies any fevers or chills. He does report that today he developed multiple episodes of nausea with vomiting as well as increase in pain that prohibited from sleeping. This prompted patient to present to the emergency department for evaluation. He denies any dysuria, hematuria in the last several days although he does report a history of intermittent hematuria. He denies any urgency, frequency. He occasionally reports left flank pain. Additionally patient reports that he has been recovering from an upper respiratory infection has been coughing significant amounts without significant production and sputum. He does not have a primary care provider which she has seen. He denies any sore throat rhinorrhea. History Information - Allergies/Home Medication List Allergies/Adverse Reactions: No Known Allergies Allergy (Verified 08/20/18 17:23) Home Medications: NK [No Known Home Meds] 08/20/18 [Last Taken Unknown] I have personally reviewed and updated: family history, medical history, social history, surgical history - Past Medical History Additional medical history: Left kidney stone. MRSA 2017. Rib fracture. Chronic tobacco dependence - Surgical History Additional surgical history: Denies - Family History Additional family history: Mother with history of cancer. No known family history of kidney stones or renal disease. - Social History Smoking Status: Heavy smoker Tobacco Use: Cigarettes (Patient reports that he is down to 1/4 or to half pack per day.) Alcohol Use: Occasionally (Several shots weekly nothing on a daily basis.) Drug Use: None Additional social history: Cor status-full. Review of Systems Review of Systems: ROS: 10pt was reviewed & negative except for what was stated in HPI & below Constitutional: Denies: chills, fever EENMT: Reports: no symptoms Cardiac: Reports: no symptoms Respiratory: Reports: cough. Denies: shortness of breath Genitourinary: Reports: flank pain (Occasional left flank pain), hematuria ( Patient denies any recent hematuria but does report a history of occasional isolated episodes). Denies: dysuria Muscolosketal: Reports: back pain (Occasional flank pain) Skin: Reports: no symptoms. Denies: rash Neurological: Reports: no symptoms Hematologic/Lymphatic: Reports: no symptoms Physical Exam Physical Exam: Selected Entries 08/20/18 17:20 Blood Pressure Automatic Method Heart Rate 66 Respiratory 18 Rate O2 Sat (%) 94 Temperature (C) 37.2 C Blood Pressure 173/105 H Mean Arterial 127 H Pressure (MAP) O2 Delivery Room Air Mode Temperature Oral Source Temp Pulse Resp BP Pulse Ox 36.7 C 57 L 20 141/86 H 98 08/20/18 22:46 08/20/18 22:46 08/20/18 22:46 08/20/18 22:46 08/20/18 22:46 Constitutional: not in pain, chronically ill appearing, cachectic, other Eyes: PERRL, anicteric sclera, EOMI, No scleral injection Ears, Nose, Mouth, Throat: poor dentition, dry mucous membranes, other (no nasal discharge) Cardiovascular: regular rate and rhythym, no murmur, rub, or gallop, pulses symmetric bilaterally, No edema Peripheral Pulses: 2+: dorsalis-pedis (R), dorsalis-pedis (L) Respiratory: no respiratory distress, reduced air movement (bibasilar), inspiratory crackles (RLL/RML >LLL) Gastrointestinal: normoactive bowel sounds, soft, non-tender abdomen, distension (minimally distended but soft.), No ruiz's sign, No guarding, No rebound Genitourinary: no bladder tenderness, No diaz in urethra Skin: warm, normal color, no rashes or abrasions Musculoskeletal: full muscle strength, no muscle tenderness, other (patient sits up independently), No pain with ROM, No generalized weakness Neurologic: AAOx3, sensation intact bilaterally, No facial droop Psychiatric: interacting appropriately, not anxious, not encephalopathic, thought process linear Lab Data & Imaging Review 08/20/18 17:57 08/20/18 17:57 WBC 10.91 10^3/uL (3.80-9.50) H 08/20/18 17:57 RBC 4.81 10^6/uL (4.40-6.38) 08/20/18 17:57 Hgb 13.6 g/dL (13.7-17.5) L 08/20/18 17:57 Hct 43.0 % (40.0-51.0) 08/20/18 17:57 MCV 89.4 fL (81.5-99.8) 08/20/18 17:57 MCH 28.3 pg (27.9-34.1) 08/20/18 17:57 MCHC 31.6 g/dL (32.4-36.7) L 08/20/18 17:57 RDW 16.5 % (11.5-15.2) H 08/20/18 17:57 Plt Count 245 10^3/uL (150-400) 08/20/18 17:57 MPV 9.5 fL (8.7-11.7) 08/20/18 17:57 Neut % (Auto) 71.5 % (39.3-74.2) 08/20/18 17:57 Lymph % (Auto) 16.8 % (15.0-45.0) 08/20/18 17:57 [place] % (Auto) 8.2 % (4.5-13.0) 08/20/18 17:57 Eos % (Auto) 2.4 % (0.6-7.6) 08/20/18 17:57 Baso % (Auto) 0.8 % (0.3-1.7) 08/20/18 17:57 Nucleat RBC Rel Count 0.0 % (0.0-0.2) 08/20/18 17:57 Absolute Neuts (auto) 7.80 10^3/uL (1.70-6.50) H 08/20/18 17:57 Absolute Lymphs (auto) 1.83 10^3/uL (1.00-3.00) 08/20/18 17:57 Absolute Monos (auto) 0.90 10^3/uL (0.30-0.80) H 08/20/18 17:57 Absolute Eos (auto) 0.26 10^3/uL (0.03-0.40) 08/20/18 17:57 Absolute Basos (auto) 0.09 10^3/uL (0.02-0.10) 08/20/18 17:57 Absolute Nucleated RBC 0.00 10^3/uL (0-0.01) 08/20/18 17:57 Immature Gran % 0.3 % (0.0-1.1) 08/20/18 17:57 Immature Gran # 0.03 10^3/uL (0.00-0.10) 08/20/18 17:57 Sodium 135 mEq/L (135-145) 08/20/18 17:57 Potassium 4.0 mEq/L (3.5-5.2) 08/20/18 17:57 Chloride 103 mEq/L (97-110) 08/20/18 17:57 Carbon Dioxide 23 mEq/l (22-31) 08/20/18 17:57 Anion Gap 9 mEq/L (6-14) 08/20/18 17:57 BUN 22 mg/dL (7-23) 08/20/18 17:57 Creatinine 0.6 mg/dL (0.7-1.3) L 08/20/18 17:57 Estimated GFR > 60 08/20/18 17:57 Glucose 95 mg/dL (70-100) 08/20/18 17:57 Calcium 8.9 mg/dL (8.5-10.4) 08/20/18 17:57 Total Bilirubin 0.3 mg/dL (0.1-1.4) 08/20/18 17:57 Conjugated Bilirubin 0.3 mg/dL (0.0-0.5) 08/20/18 17:57 Unconjugated Bilirubin 0.0 mg/dL (0.0-1.1) 08/20/18 17:57 AST 23 IU/L (17-59) 08/20/18 17:57 ALT 39 IU/L (21-72) 08/20/18 17:57 Alkaline Phosphatase 85 IU/L (38-126) 08/20/18 17:57 Total Protein 7.5 g/dL (6.3-8.2) 08/20/18 17:57 Albumin 3.8 g/dL (3.5-5.0) 08/20/18 17:57 Lipase 68 IU/L (23-300) 08/20/18 17:57 Urine Color YELLOW 08/20/18 20:15 Urine Appearance HAZY 08/20/18 20:15 Urine pH 7.0 (5.0-7.5) 08/20/18 20:15 Ur Specific [place] 1.035 (1.002-1.030) H 08/20/18 20:15 Urine Protein NEGATIVE (NEGATIVE) 08/20/18 20:15 Urine Ketones NEGATIVE (NEGATIVE) 08/20/18 20:15 Urine Blood NEGATIVE (NEGATIVE) 08/20/18 20:15 Urine Nitrate POSITIVE (NEGATIVE) H 08/20/18 20:15 Urine Bilirubin NEGATIVE (NEGATIVE) 08/20/18 20:15 Urine Urobilinogen NEGATIVE EU (0.2-1.0) 08/20/18 20:15 Ur Leukocyte Esterase TRACE (NEGATIVE) H 08/20/18 20:15 Urine RBC 5-10 /hpf (0-3) H 08/20/18 20:15 Urine WBC 15-25 /hpf (0-3) H 08/20/18 20:15 Ur Epithelial Cells 1+ /lpf (NONE-1+) 08/20/18 20:15 Urine Mucus TRACE /lpf (NONE-1+) 08/20/18 20:15 Urine Glucose NEGATIVE (NEGATIVE) 08/20/18 20:15 Imaging Review: CT Scan of the Abdomen and Pelvis (With Contrast) 1846 hours History: Abdominal pain for 3 weeks with nausea and vomiting Technique: Axial computed tomographic images of the abdomen and pelvis were obtained with the uneventful intravenous administration of 90 mL Isovue-300 contrast. Images were reviewed in multiple planes. Dose reduction techniques were utilized. CT Abdomen and Pelvis Findings: Comparison the prior studies from 03/16/2017 and 06/16/2008 Lung bases: Normal. Liver: No focal liver lesions are identified. There is some increased hazy enhancement around the gallbladder fossa. Spleen: Normal. Gallbladder and Bile Ducts: Moderate gallbladder wall thickening is once again noted with tiny gallstones and pericholecystic fluid. There is no biliary ductal dilatation. Pancreas: Scattered punctate calcifications are seen associated with the pancreas compatible with chronic pancreatitis sequela similar to the prior studies. No focal pancreatic mass or pancreatic ductal dilatation. Adrenals: Normal. Kidneys: Large dense lamellated calculus is increased slightly within dilated left renal pelvis now measuring 4.4 x 4 cm. There is once again thickening of the vicente of the right renal pelvis with moderate left-sided hydronephrosis secondary to left UPJ obstruction most likely. There is also stable 3 mm nonobstructive calculus lower pole left kidney. There is some focal thinning of the cortex of the left kidney probably related to some scarring. The right kidney is normal in appearance. Abdominal Aorta: Mild to moderate arteriosclerotic calcifications are seen associated with the distal aorta and pelvic branches without aneurysm.. Pelvic structures: Normal. Bladder: Normal. Appendix: Normal. Bowel Loops: Normal. No bowel obstruction, ascites, or significant retroperitoneal lymphadenopathy. Skeletal system: There is stable mild compression superior central endplate of L3 and minimal anterior wedge compression of L1 stable as well. There are no significant lytic or sclerotic osseous lesions. Degenerative disk disease is noted lower lumbar spine. Impression: 1. Large kidney stones identified within dilated left renal pelvis with thickened wall and possible chronic inflammatory/infectious process with underlying UPJ obstruction suspected. 2. Cholelithiasis with gallbladder wall thickening and pericholecystic fluid suggestive of chronic cholecystitis also identified previously. 3. Additional stable 3 mm nonobstructive calculus lower pole left kidney. 4. Focal thinning of the cortex of left kidney probably from scarring. Findings discussed with Rufina Rice MD at 19:13 hour, 08/20/2018. Dictated By: Son Jansen MD Ultrasound of the Abdomen Limited 2023 hours History: Right upper condyle pain. Evaluate for cholecystitis. Thickened gallbladder with gallstones and pericholecystic fluid identified on this study. Comparison: CT performed earlier today at 1846 hours Findings: Gallbladder: Numerous small gallstones as well as sludge is seen within the gallbladder. There is moderate to marked gallbladder wall thickening measuring 9-10 mm. There is also color flow enhancement of the gallbladder wall. Common bile duct is 4 to 5 mm in diameter. The patient was moderately tender over the gallbladder fossa. Liver: Homogeneous in echogenicity without definite focal solid lesions and measures 15.76 cm. Main portal vein is patent with normal hepatopedal flow on color flow imaging. Renal: Right kidney measures 12.8 cm x 6.3 cm x 6.9 cm without hydronephrosis. Pancreas: Homogeneous without peripancreatic fluid. Pancreatic tail obscured by bowel gas. Aorta: Visualized upper abdominal aorta demonstrates no aneurysm. Impression: 1. Findings suspicious for cholecystitis with gallstones, gallbladder sludge, gallbladder wall thickening with increased color flow enhancement, and tenderness. Dictated By: Son Jansen MD Visualized and Interpreted imaging results: Yes Assessment & Plan Assessment: 67-year-old gentleman with past has tree significant for large left kidney stone , tobacco dependence who presents emergency department today with complaints of left lateral and lower abdominal pain. # abdominal pain - patient symptoms consistent c/o more with left lateral/LLQ pain. Large 4 cm kidney stone noted at the UPJ. UA is also abnormal. He has been started on Rocephin. Additionally right upper quadrant abdominal ultrasound was obtained showing a chronic cholecystitis however patient is currently asymptomatic in the right upper quadrant. LFTs and bilirubin are within normal limits. At this point acute focus our will be on the large kidney stone. Additional evaluation by surgery as per day team or sooner if patient should develop symptoms but currently and does not require emergent evaluation. # Left 4cm kidney stone at UPJ - or patch. Patient will be made NPO after midnight. Urology consulted from the emergency department they will plan to see the patient the morning. # UTI - + nitrites, WBCs. rocephin started. culture pending. #Cough - patient with notable rales on the right lower lobe lobe. Patient reports a history of coughing fits over the last several weeks. Will check an x -ray in the morning. Smoking cessation encouraged. There may be a component of underlying lung disease/COPD related to patient's long-standing history of tobacco abuse. Nebulizers p.r.n.. # Tobacco dependence - smoking cessation will be encouraged. The patient declines nicotine gum # BMI of 19.3 patient reports a 2 week significant illness and currently is with a good appetite. FEN - IV fluids overnight for gentle hydration. Patient does still appear to be slightly dry. Will be NPO after midnight. Electrolytes currently adequate do not require replacement. PPX - holding anticoagulation pending evaluation by Urology. SCDs. COR - FULL Dispo - patient admitted inpatient status given significant size of the kidney stone as well as his need for IV antibiotics. Additional evaluation for patient 's cough.
[2018-08-21] MEDS ORDERED: IPRATROPIUM/ALBUTEROL 3 ML DEYVIAL IH PRN (01:31)
[2018-08-21 04:57] LABS: PLATELET COUNT 227 10^3/uL (150-400)
[2018-08-21 07:37] VITALS: BP 101/73
--- NOTE | 2018-08-21 08:32 | SOAPPROG ---
[facility] Progress Note Assessment/Plan: Assessment: Cholelithiasis with chronic cholecystitis Acute GI or GS to address Hydronephrosis Acute Chronic and noted for >10 years and pt has declined rx recommendations on multiple visits in past Nephrolithiasis Acute Chronic and unchanged from >10 years, pt has declined rx recommendations in past Plan: observe, DC and follow up in office for consideration of rx in an elective fashion of chronic large renal pelvis stone 08/21/18 09:07 Subjective: ok Objective: Vital Signs Temp Pulse Resp BP Pulse Ox 36.9 C 86 18 101/73 94 08/21/18 07:36 08/21/18 07:36 08/21/18 07:36 08/21/18 07:36 08/21/18 07:36 Laboratory Results 08/21/18 04:25 08/21/18 04:25 08/20/18 08/21/18 08/22/18 05:59 05:59 05:59 Intake Total 2195 Output Total 400 Balance 1795 Physical Exam - Physical Exam General Appearance: alert Respiratory: No respiratory distress Cardiac/Chest: regular rate, rhythm Abdomen: non-tender Back: No CVA tenderness Neuro/Psych: alert, oriented x 3 ICD10 Worksheet Patient Problems: Problems Problem Status Onset Cholelithiasis with chronic cholecystitis Acute Hydronephrosis Acute Nephrolithiasis Acute Cellulitis of left elbow Acute Olecranon bursitis, right elbow Acute - ICD10 Problem Qualifiers (1) Nephrolithiasis (2) Hydronephrosis (3) Cholelithiasis with chronic cholecystitis
--- NOTE | 2018-08-21 08:42 | PDMN ---
Medical Necessity Medical necessity: MCG: M555 gallbladder or bile duct inflammation or stone A- 2 days: abd pain with Large stones with UPJ obstruction noted. urology consult pend. anticipate > 2 MN ongoing med nec care- further monitoring , eval and tx. needed.
--- NOTE | 2018-08-21 09:33 | GCON ---
[f rep st] CONSULTATION REASON FOR CONSULTATION: I have been asked to see this gentleman because of a 4 cm left renal stone and abdominal pain. HISTORY OF PRESENT ILLNESS: I reviewed his charts from the hospital and from previous office visits he had with Dr. Brink in 2017. By history, this gentleman has had this left renal calculus, which is 4 cm (unchanged in size), for o joie 10 years. On multiple occasions, it has been suggested he might consider treatment, but he had d eclined. This is not an urgent or emergent matter, and to remove it would be a major operative proce dure that should be scheduled electively. I have discussed this with him, and he appeared to underst and. He was told that this would be just a simple, going to take it out real quick maneuver and we d o it all the time. A 4 cm stone would require major intervention and treatment and should be schedul ed electively for treatment. On a CAT scan, he does have cholelithiasis and chronic cholecystitis, and the question is that does h e need to have this addressed. Either General Surgery or Gastroenterology could address that. There is no mention of whether he has declined previous treatment for his gallstones and chronic cholecyst itis. He has been seen by Dr. Villalobos in the past for an olecranon ulcer, which he treated. ALLERGIES: He has no drug allergies. MEDICATIONS: He is not on home medications. PHYSICAL EXAMINATION: VITAL SIGNS: Stable. CHEST: Clear. HEART: Regular rate and rhythm. ABDOM EN: Normal; no organomegaly, rebound or guarding. LOWER EXTREMITIES: Present. LABORATORY DATA: At the present time, his labs show that he had a white blood count of 8.38 this mor matilda, hematocrit of 38.7, platelet count 227. Chemistries revealed a creatinine of 0.6, a BUN of 19 and a calcium of 8.9 on admission, 8.2 with hydration. A urine culture is pending. Previous culture s have been negative. RECOMMENDATIONS: At the present time, the impression from a genitourinary standpoint is that he coul d call the office to make an appointment to have follow up in our clinic. If he elects to have remov al of this large stone, it would be scheduled electively because of the complexity, the time constrai nts of the procedure and this not being an acute matter. /[id number]/MODL
--- NOTE | 2018-08-21 10:56 | ASMTCMCOM ---
CM Note CM Note Notes: Pt chart reviewed for discharge. Jed is a 67yr old admitted with nausea, vomiting & worsening lower abd pain for the past [address] revealed kidney stone and Lg gallstone with chronic cholecystitis. Pt is a heavy smoker and reports hes been recovering from an upper resp infection. CM available for needs. PLAN: Likely d/c home independently Date Signed: 08/21/2018 10:55 AM Electronically Signed By:Svitlana Jennings
--- NOTE | 2018-08-21 13:30 | HOSPPROG ---
Hospitalist Progress Note Assessment/Plan: 67 yo M pw abdominal pain and e/o large left sided kidney stone and chronic cholecystitis # abdominal pain: seems to have improved although patient a bit agitated and having trouble answering questions specifically about this, abd exam benign, tolerating diet. Does have evidence of chronic inflammation related to kidney stone and chronic cholecystitis as next # nephrolithiasis: large left sided stone that has been present per urology for at least 10 years, he has declined surgical management in the past, imaging personally reviewed including abd CT notable for chronic inflammation and UPJ obstruction. Plan for patient to f/u with urology after dc # chronic cholecystitis: GB thickening and pericholecystic fluid c/w chronic cholecystitis similar to prior imaging, again this does not require urgent management and recommend patient f/u with surgery as an OP # observation status # Patient new to my care. Old records reviewed and summarize as above. Subjective: no significant overnight events, patient very upset this am about not getting breakfast when he wanted it, very angry at the hospital and staff Objective: Vital Signs Temp Pulse Resp BP Pulse Ox 36.9 C 86 18 101/73 94 08/21/18 07:36 08/21/18 07:36 08/21/18 07:36 08/21/18 07:36 08/21/18 07:36 Laboratory Results 08/21/18 04:25 08/21/18 04:25 08/20/18 08/21/18 08/22/18 05:59 05:59 05:59 Intake Total 2195 Output Total 400 Balance 1795 disheveled anicteric op clear poor dentition rrr no mrg cta b soft nt nd no cce warm dry well perfused oriented anxious aggressive - Time Spent With Patient Time Spent with Patient: greater than 35 minutes Time Spent with Patient: Greater than 35 minutes spent on this patients care, greater than 50% of time spent counseling, educating, and coordinating care regarding the above mentioned plan. ICD10 Worksheet Patient Problems: Problems Problem Status Onset Cellulitis of left elbow Acute Olecranon bursitis, right elbow Acute Nephrolithiasis Acute Hydronephrosis Acute Cholelithiasis with chronic cholecystitis Acute
--- NOTE | 2018-08-21 13:49 | PDDCSUM ---
Discharge Summary Discharge Summary: Dates of service 08/21-08/22/18 Consultations: urology Procedures performed: abd/pelvis CT, abd US Hospital course by problem: 67 yo M pw abdominal pain and e/o large left sided kidney stone and chronic cholecystitis # abdominal pain: patient states pain completely resolved following oxycodone-- eating, walking without issues. As next, does have e/o chronic nephrolithiasis and chronic cholecystitis unchanged for many years but both in need of intervention. Urology requesting OP f/u, discussed consultation of surgery with patient but explained this would necessitate likely 2 more days in house prior to possible surgery on Thursday and he declines and states he will f/u as an OP. Given short course of oxy, f/u information given. # nephrolithiasis: large left sided stone that has been present per urology for at least 10 years, he has declined surgical management in the past, imaging personally reviewed including abd CT notable for chronic inflammation and UPJ obstruction. Plan for patient to f/u with urology after dc # chronic cholecystitis: GB thickening and pericholecystic fluid c/w chronic cholecystitis similar to prior imaging, again this does not require urgent management and recommend patient f/u with surgery as an OP # dc home F/u with urology and general surgery as above f/u with PCP > 35 min spent in dc more than half spent in counseling patient who was initially very agitated and aggressive
== END 2018-08-21 14:57 | disposition home or self-care (01) | DRG 445 ==
LOC: F1N 22:20
PROVIDERS: ADMIT Family Medicine; ATTEND Hospitalist
DX: K80.10 Calculus of gallbladder with chronic cholecystitis without obstruction (principal); Z68.1 Body mass index [BMI] 19.9 or less, adult; N20.0 Calculus of kidney; E86.9 Volume depletion, unspecified; F17.210 Nicotine dependence, cigarettes, uncomplicated
CPT/HCPCS: 96365; J0696; J3010; Q9967

== ENCOUNTER 2018-08-22 19:53 | Emergency (ER) | payer MEDICAID, OTHER ==
--- NOTE | 2018-08-22 20:12 | EDPHY ---
H & P Stated Complaint: Abdominal Pain Time Seen by Provider: 08/22/18 20:12 HPI/ROS: HPI CHIEF COMPLAINT: [ ] HISTORY OF PRESENT ILLNESS: [Need 4: Location, Duration, Severity, Quality, Context, Timing Modifying Factors, Associated S&S] Past Medical History: Past Surgical History: Social History: Family History: ROS REVIEW OF SYSTEMS: 10 Systems were reviewed and negative with the exception of the elements mentioned in the history of present illness. Exam Constitutional triage nursing summary reviewed, vital signs reviewed, awake/ alert. Eyes normal conjunctivae and sclera, EOMI, PERRLA. HENT normal inspection, atraumatic, moist mucus membranes, no epistaxis, neck supple/ no meningismus, no raccoon eyes. Respiratory clear to auscultation bilaterally, normal breath sounds, no respiratory distress, no wheezing. Cardiovascular rate normal, regular rhythm, no murmur, no edema, distal pulses normal. Gastrointestinal soft, non-tender, no rebound, no guarding, normal bowel sounds, no distension, no pulsatile mass. Genitourinary no CVA tenderness. Musculoskeletal no midline vertebral tenderness, full range of motion, no calf swelling, no tenderness of extremities, no meningismus, good pulses, neurovascularly intact. Skin pink, warm, & dry, no rash, skin atraumatic. Neurologic awake, alert and oriented x 3, AAOx3, moves all 4 extremities equally, motor intact, sensory intact, CN II-XII intact, normal cerebellar, normal vision, normal speech. Psychiatric normal mood/affect. Heme/Lymph/Immune no lymphadenopathy. Differential Diagnosis: Medical Decision Making: Re-evaluation: Source: Patient - Personal History Current Tetanus/Diphtheria Vaccine: Unsure Current Tetanus Diphtheria and Acellular Pertussis (TDAP): Unsure - Medical/Surgical History Hx Asthma: No Hx Chronic Respiratory Disease: No Hx Diabetes: No Hx Cardiac Disease: No Hx Renal Disease: No Hx Cirrhosis: No Hx Alcoholism: No Hx HIV/AIDS: No Hx Splenectomy or Spleen Trauma: No Other PMH: kidney stone, cholecystitis, uti - Social History Smoking Status: Heavy smoker Constitutional: Initial Vital Signs Temperature (C) 36.3 C 08/22/18 20:03 Heart Rate 71 08/22/18 20:03 Respiratory Rate 18 08/22/18 20:03 Blood Pressure 144/93 H 08/22/18 20:03 O2 Sat (%) 96 04/14/19 20:03 O2 Delivery Mode Room Air Allergies/Adverse Reactions: No Known Allergies Allergy (Verified 08/22/18 20:00) Home Medications: Medication Instructions Recorded Hydrocodone/APAP 5/325 [[place] 1 - 2 tab PO Q4HRS PRN #30 tab 08/21/18 5/325 (*)] LORazepam [Ativan (*)] 0.5 mg PO Q8HRS PRN #20 tab 08/21/18 Ondansetron Odt [Zofran Odt 4 mg 4 mg PO Q4HRS PRN #20 tab 08/21/18 (*)] diphenhydrAMINE [Benadryl 25 MG 25 - 50 mg PO Q6HRS PRN cap 08/21/18 (*)] levOFLOXACIN [levAQUIN (*)] 750 mg PO DAILY #5 tab 08/21/18 Departure - Departure Referrals: NONE *PRIMARY CARE P,. [Primary Care Provider] - As per Instructions
--- NOTE | 2018-08-22 20:28 | EDPHY ---
General Time Seen by Provider: 08/22/18 20:12 Narrative: CLINICAL IMPRESSION: Left-sided abdominal pain, chronic cholecystitis, ureteral stone ASSESSMENT/PLAN: Patient is a 67-year-old male with known left large kidney stone and chronic cholecystitis who was just discharged from the hospital 2 days prior, presents to the emergency department with recurrent left-sided abdominal pain. Patient is afebrile and not toxic-appearing, he is in no acute distress. Patient's abdomen was soft, I was unable to elicit any tenderness to palpation. His vital signs were reviewed, no findings to suggest sepsis. There was no evidence of leukocytosis or acute kidney injury. The patient had no abdominal pain in the emergency department and required no pain medication. He has not yet filled his Levaquin or [place], he was given Levaquin today for underlying an ongoing urinary tract infection. He was given a dose for tomorrow and understands the importance of filling his prescriptions. He has not yet followed up with Urology or General surgery, I discussed that it is imperative for him to do so. I discussed this case with Dr. Janey Manuel, no indication for readmission at this time. I reviewed his records and Urology consultation, it was felt during his admission that he is appropriate for outpatient follow- up and outpatient surgical intervention. A case management consult was placed to help facilitate getting patient follow-up. On repeat examination the patient is well-appearing, his abdomen is soft with no tenderness to palpation. He is comfortable with the plan. Conservative return precautions discussed. DIFFERENTIAL DX: Abdominal pain including but not limited to appendicitis, cholecystitis, gastritis and urinary tract infection. ED COURSE: 2049: CT abdomen and pelvis from visit several days prior reviewed which revealed findings suggestive of chronic cholecystitis as well as a large dense calculus in the left renal pelvis measuring 4.4 x 4 cm. There is wall thickening of the right renal pelvis with moderate left-sided hydronephrosis secondary to left UPJ obstruction most likely. There is a stable 3 mm nonobstructive calculus in the lower pole of the left kidney. 2206: Case discussed with Dr. Mcginnis. 2234: Case discussed with hospitalist Dr.Elane Manuel and who is familiar with this patient. We reviewed his inpatient records, he was discharged with 750 mg of Levaquin to be taken daily as well as [place] for pain. Patient with reassuring workup in the emergency department, no leukocytosis, no hypotension or tachycardia. There were no findings to suggest sepsis. Patient had no abdominal pain while in the emergency department. No indication for admission at this time. 2304: On repeat examination the patient is well-appearing, he has had no recurrent abdominal pain while in the emergency department. His abdomen is soft , I am unable to elicit any tenderness to palpation. We discussed the importance of outpatient follow-up with both Dr. Cuevas and Dr. Lucia, he understands. He also understands that he must continue his antibiotic therapy. CHIEF COMPLAINT: Ongoing left-sided abdominal pain HPI: Patient is a 67-year-old gentleman with a known history of large left kidney stone and chronic cholecystitis who presents to the emergency department with recurrent and ongoing left lateral lower abdominal pain. Patient was recently admitted for abdominal pain, discharged 2 days prior. Patient reports since his discharge, he was unable to fill his prescription which included an antibiotic and pain medicine. He had been feeling okay up until last night when he had a sudden onset of recurrent left mid lower quadrant pain exactly like he presented with several days prior. He was unable to sleep most of the night secondary to the pain, however it did subside until this afternoon. He had a sudden onset of significant pain that took him to the ground, he was unable to get up secondary to the pain. He reports pain improvement on arrival to the emergency department. He has had an episode of nausea and vomiting today , denies any hematemesis. Patient denies any fever, chest pain or shortness of breath. He denies any dysuria, hematuria or increased frequency. He denies any flank or back pain. Bowel movements have been regular, had a normal bowel movement today without melena or hematochezia. Patient has not taken anything for pain. PMH: Left kidney stone, chronic tobacco dependence, chronic cholecystitis Pertinent Past Surgical History: No abdominal surgeries Family History: Not contributory Social History: Heavy cigarette smoker, denies illicit drug use, occasional alcohol use REVIEW OF SYSTEMS: All other systems negative Constitutional: No fever, no chills, appetite change. Eyes: No discharge, vision change ENT: No sore throat, congestion, ear pain. Cardiovascular: No chest pain, no palpitations. Respiratory: No cough, no shortness of breath. Gastrointestinal: No abdominal pain, no vomiting, diarrhea. Genitourinary: Left-sided abdominal pain. Musculoskeletal: No back pain, joint swelling, joint pain, myalgias. Skin: No rashes, color change. Neurological: No headache, dizziness, weakness. PHYSICAL EXAM: General Appearance: Alert, unkempt and disheveled, not toxic-appearing. HENT: Normocephalic, atraumatic. Bilateral external ears are normal. Bilateral tympanic membranes are normal with pearly augustine reflex. Nares are clear, mucosa is pink. Oropharynx is clear, uvula is midline. There is no tonsillar enlargement or exudate. Poor dentition. Eyes: PERRLA, EOMI. Conjunctiva pink, no pallor or injection Neck: Supple, nontender, no lymphadenopathy, no midline pain, FROM, no meningismus. Respiratory: There are no retractions, lungs are clear to auscultation. Cardiac: Regular rate and rhythm, no murmurs or gallops. Gastrointestinal: Abdomen is soft, bowel sounds normal, no masses/hernia. I am unable to elicit any tenderness to palpation, there is no rigidity, guarding or focal peritoneal findings. No flank tenderness bilaterally. Neurological: Alert and oriented x 3, CN 2-12 grossly intact, normal gait no ataxia, DTR's intact, normal sensation and strength Skin: Warm, dry, no rashes, no nodules on palpation. Musculoskeletal: Extremities are symmetrical, full range of motion, no tenderness, deformity, swelling, or erythema. Psychiatric: Patient is oriented X 3, there is no agitation. MEDICAL DECISION MAKING: Patient was seen independently. Secondary supervising physician at time of evaluation was Dr. Mcginnis. Diagnosis: Left-sided abdominal pain. New, requires workup Summary: See Assessment and Plan for summary of ED visit Clinical lab tests: ordered / reviewed. Independent visualization of images, tracing, or specimens: Not applicable. Decision to obtain medical records or history from someone other than the patient: No Review / Summarize previous medical records: Yes Discussed patient with another provider: Yes, Dr. Mcginnis Patient Progress: Stable, discharge. - History Smoking Status: Heavy smoker - Objective Vital Signs: Initial Vital Signs Temperature (C) 36.3 C 08/22/18 20:03 Heart Rate 71 08/22/18 20:03 Respiratory Rate 18 08/22/18 20:03 Blood Pressure 144/93 H 08/22/18 20:03 O2 Sat (%) 96 08/22/18 20:03 O2 Delivery Mode Room Air Allergies/Adverse Reactions: No Known Allergies Allergy (Verified 08/22/18 20:00) Home Medications: Medication Instructions Recorded Hydrocodone/APAP 5/325 [[place] 1 - 2 tab PO Q4HRS PRN #30 tab 08/21/18 5/325 (*)] LORazepam [Ativan (*)] 0.5 mg PO Q8HRS PRN #20 tab 08/21/18 Ondansetron Odt [Zofran Odt 4 mg 4 mg PO Q4HRS PRN #20 tab 08/21/18 (*)] diphenhydrAMINE [Benadryl 25 MG 25 - 50 mg PO Q6HRS PRN cap 08/21/18 (*)] levOFLOXACIN [levAQUIN (*)] 750 mg PO DAILY #5 tab 08/21/18 Laboratory Results: Laboratory Results 08/22/18 21:15 08/22/18 21:15 Microbiology Results: MICROBIOLOGY 08/22/18 22:48 Urine,Clean Catch Urine Culture - Final Gram Neg Rods 2 Or More Types Medications Given: Discontinued Medications Hydrocodone Bitart/Acetaminophen ([place] 5/325mg Prepack#6) 1 btl TAKEHOME EDNOW ONE Stop: 08/22/18 23:03 Last Admin: 08/22/18 23:09 Dose: 1 btl Sodium Chloride (Ns) 1,000 mls @ 0 mls/hr IV ONCE ONE PRN Reason: Wide Open Stop: 08/22/18 21:30 Last Admin: 08/22/18 21:30 Dose: 1,000 mls Levofloxacin (Levaquin) 750 mg PO EDNOW ONE PRN Reason: Protocol Stop: 08/22/18 22:44 Last Admin: 08/22/18 22:50 Dose: 750 mg Levofloxacin (Levaquin) 750 mg PO EDNOW ONE PRN Reason: Protocol Stop: 08/22/18 23:03 Last Admin: 08/22/18 23:10 Dose: 750 mg Departure - Departure Disposition: Home, Routine, Self-Care Clinical Impression: Abdominal pain, Cholelithiasis with chronic cholecystitis, Nephrolithiasis Condition: Good Instructions: Hydrocodone/Acetaminophen (By mouth), Acute Abdominal Pain (ED) Additional Instructions: DISCHARGE INSTRUCTIONS FROM YOUR DOCTOR Thank you for visiting our emergency department today. Please keep in mind that discharge from the emergency department does not mean that there is nothing wrong - it simply means that we have not identified an emergency condition that requires further evaluation or treatment in the hospital. It is imperative that you follow up with Urology and General surgery. It is imperative that you establish care with a primary care provider. Please call tomorrow to schedule your appointment accordingly. You have been given another dose of an antibiotic which he will take tomorrow. You have been given a take- home pack of narcotics for your pain, please fill the prescriptions that have already been provided to you. You told me that you still have these prescriptions in your living room, take them to her pharmacy tomorrow to get them filled. People present with illnesses and injuries in different ways, and it is always possible that we have missed something. You may always return for re-evaluation if symptoms worsen or if they are not improving or if you develop new/different symptoms. Again, thank you for choosing our emergency department. We hope that you feel better. Referrals: Margo Stout MD [Medical Doctor] - As per Instructions Eladio Lucia MD [Medical Doctor] - 2-3 days, call for appt. Kevin Cuevas MD [Medical Doctor] - As per Instructions (Call tomorrow to schedule a follow-up appointment.)
[2018-08-22] MEDS ORDERED: NS 1,000 ML IV ONE (21:29)
[2018-08-22 21:34] LABS: PLATELET COUNT 262 10^3/uL (150-400)
[2018-08-22 22:52] VITALS: BP 113/91
[2018-08-22] MEDS ORDERED: HYDROCOD/APAP 5/325 PREPACK#6 BTL TAKEHOME ONE (23:02)
== END 2018-08-22 23:19 | disposition home or self-care (01) ==
DX: K80.10 Calculus of gallbladder with chronic cholecystitis without obstruction (principal); N20.0 Calculus of kidney